=== PATIENT | male | born 1995 | race Caucasian/White ===

== ENCOUNTER 2023-11-17 09:44 | Emergency (ER) | payer OTHER, SELFPAY ==
--- NOTE | ~2023-11-17 | XR_ITS ---
EXAMINATION: XR CHEST CLINICAL INFORMATION: Chest pain COMPARISON: None available. TECHNIQUE: Frontal view of the chest was obtained. FINDINGS: Cardiac silhouette is normal in size. The lungs are well aerated. There is no lobar consolidation. No pleural effusion or pneumothorax. No acute osseous abnormality. XR/XR chest 1V IMPRESSION: No acute pulmonary pathology.
--- NOTE | 2023-11-17 09:48 | ECG_ITS ---
Test Reason : chest pain Blood Pressure : / mmHG Vent. Rate : 097 BPM Atrial Rate : 097 BPM P-R Int : 134 ms QRS Dur : 086 ms QT Int : 342 ms P-R-T Axes : 082 078 058 degrees QTc Int : 434 ms Normal sinus rhythm with sinus arrhythmia Normal ECG No previous ECGs available Referred By: Generic ED Physician Electronically Signed By:YOLI FUCHS
[2023-11-17 10:00] VITALS: BP 114/65; PULSE 98; RESP 18; TEMP 36.8; O2SAT 98; BMI 19.3
--- NOTE | 2023-11-17 10:18 | ED_ITS ---
HPI - Chest Pain General Chief Complaint: Chest Pain Stated Complaint: chest pain Time Seen by Provider: 11/17/23 10:15 Source: patient Mode of arrival: ambulatory Limitations: no limitations History of Present Illness HPI narrative: Patient is a 27-year-old male presents emergency department for evaluation of chest pain. He reports that he experiences intermittent left anterior chest pain that is described as a pinch and sharp in nature, typically lasts a few seconds to 1 minute before self-resolving. He admits that this typically occurs when he is smoking marijuana and he notices that he begins to feel anxious when the pain occurs sometimes is short of breath. Again the self resolved relatively quickly. He reports sometimes it happens at least once daily other times it may happen a few times throughout the week. He denies cigarette smoking. Denies personal history of DVT/PE/malignancy. Denies any known coagulation disorders. He admits to a history of colitis which has been controlled with sulfasalazine. He is currently without chest pain. He denies associated dizziness, lightheadedness, near syncope, nausea, vomiting, abdominal pain, numbness or tingling of his extremities. He has not sought evaluation with a primary care provider for this, he states he has an upcoming appointment with a new PCP after many years of not having one. When asked, he states that nothing was particularly different or changed today, he just wanted to ?finally have it checked out?. He does admit to being ?high strung?, and having ?a lot of anxiety?. He does not follow with a therapist, nor is he on any anxiolytics and has not been in the past, denies interest in this. Denies SI/HI. Denies additional recreational drug or alcohol usage. Related Data Allergies Allergy/AdvReac Type Severity Reaction Status Date / Time No Known Allergies Allergy Verified 11/17/23 10:02 Review of Systems 2 Review of Systems: Yes all other systems are reviewed and are negative PMFSH Past Medical History Attestation statement: The following information was validated with the patient. Source: old records reviewed Social History Social History Smoked in Last 30 Days: Yes Use of substances other than those prescribed or required for medical reasons: Yes Substance Use Type: Marijuana Substance Use Frequency: Weekly Advance Directives: No Advance Directives Information Provided: No Do you have a plan to hurt others: No Plan Physical Exam 2 Vital Signs: Vital Signs: Last Vital Signs Temp 98.4 F 11/17/23 10:35 Pulse 72 11/17/23 10:35 Resp 18 11/17/23 10:35 BP 132/80 11/17/23 10:35 Pulse Ox 98 11/17/23 10:35 O2 Del Method Room Air 11/17/23 10:35 BMI result Body Mass Index 19.3 Appearance: Alert.?Oriented to person, place and time. No acute distress.?Normal affect. Eyes: Pupils equal, round and reactive to light.? ENT: Pharynx normal.?? Neck: Normal inspection.? Neck supple.?? CVS: Heart sounds normal. Normal heart rate and rhythm.? Pulses normal.?? Respiratory: No respiratory distress.? Lung sounds clear to auscultation bilaterally?? Abdomen: Soft and non-tender. Normoactive bowel sounds. No pulsatile mass.?? Skin: Skin warm and dry.? Normal skin color.? Extremities: No lower extremity edema.? No calf ttp? Neuro: Moves all extremities spontaneously. Sensation intact bilaterally. CN II- XII intact. No focal neuro deficits. Ambulates with normal steady gait. Course Reevaluation(s) Reevaluation #1: CBC reveals a mild leukocytosis of 12.7 without left shift, may be viral versus inflammatory in nature, mild normocytic anemia that does not meet transfusion criteria, mild thrombocytosis of 442,000. Pulse has been less than 100, no hypoxia, no risk factors for PE. Chemistries are overall unremarkable. High sensitive troponin below detectable limits, EKG is nonischemic, do not suspect ACS, has atypical history for ACS in addition to no risk factors. Chest x-ray is without acute pathology. I feel he is stable for discharge home, outpatient follow-up his primary care provider. An advised to avoid exacerbating factors of the symptoms including smoking marijuana. Discussed worrisome signs and symptoms that would warrant re-evaluation in the emergency department. Medical Decision Making Medical Decision Making MDM Narrative: Patient is a 27-year-old male with past medical history of colitis who presents emergency department for evaluation of intermittent episodic chest pain as per HPI. Episodes very brief in nature and self resolve. On examination he appears overall well, nontoxic, afebrile, no respiratory distress. Does admit to a history of anxiety, has not had any acute change to these episodes of chest pain but wanted to have evaluation given it has been going on for nearly 2 years now. Wells negative, unlikely pulmonary embolism. Will obtain CBC to evaluate for leukocytosis/ anemia, CMP and lipase to evaluate for abnormal electrolytes /abnormal renal function/ abnormal hepatic/biliary function, EKG and troponin to evaluate for ischemia/ACS. Chest x-ray to evaluate for consolidation/ infiltrate/ mass/ pulmonary congestion. Differential Diagnosis Differential Diagnoses: The differential diagnosis associated with the presentation includes (See narrative above) Admission/Observation Consideration of admission/observation: Escalation of care including admission/observation considered Lab Data MDM Lab Attestation statement: I reviewed the patient's lab results. (See course narrative) 11/17/23 10:18 11/17/23 10:18 Labs: Lab Results 11/17/23 Range/Units 10:18 WBC 12.7 H (4.8-10.8) X10*3/uL RBC 4.51 L (4.60-5.80) X10*6/uL Hgb 13.4 L (14.0-18.0) g/dl Hct 41.1 L (42.0-52.0) % MCV 91.1 (80.0-98.0) fL MCH 29.7 (27.0-33.0) pg MCHC 32.6 (31.0-36.0) g/dl RDW 13.0 (11.0-16.0) % Plt Count 442 H (160-400) X10*3/uL MPV 8.9 L (9.4-12.4) fL Immature Gran % (Auto) 0.2 (0.0-0.4) % Neut % (Auto) 63.6 (45-73) % Lymph % (Auto) 15.5 L (20-40) % [place] % (Auto) 12.0 H (2-11) % Eos % (Auto) 7.5 H (0-4) % Baso % (Auto) 1.2 (0-2) % Lymph # (Auto) 2.0 (1.2-4.9) X10*3/uL [place] # (Auto) 1.5 H (0.1-1.2) X10*3/uL Eos # (Auto) 1.0 H (0.0-0.4) X10*3/uL Baso # (Auto) 0.2 (0.0-0.2) X10*3/uL Abs Immat Gran (auto) 0.03 (0.00-0.03) X10*3/uL Absolute Neuts (auto) 8.1 (2.0-8.3) x10*3/uL Absolute Nucleated RBC 0.000 (0.0-0.012) X10*3/uL Nucleated RBC % (auto) 0.0 (0.0-0.2) /100WBC Smear Tech's Comments VERIFIED Sodium 141 (135-145) mmol/L Potassium 3.9 (3.3-5.1) mmol/L Chloride 109 H (96-108) mmol/L Carbon Dioxide 21 L (22-29) mmol/L Anion Gap 15 (12-20) BUN 9 (9-16) mg/dL Creatinine 0.88 (0.5-1.4) mg/dL Estim Creat Clear Calc 101.6 Estimated GFR > 60 Random Glucose 94 (60-115) mg/dL Calcium 9.5 (8.4-10.2) mg/dL Troponin I High Sens < 2.7 (<3.5-35.0) ng/L Independent Interpretation I performed an independent interpretation of an: EKG and Plain X-Ray (No acute infiltrates consolidation or pneumothorax) Interpretation: Rate: 97 Rhythm:? Normal sinus rhythm Normal P waves.? Normal MACKENZIE.?? Normal QRS complex.?? ST T wave :??No ST elevation, no ST depression, no T-wave inversion qTC:434 prior studies:? No prior available for review The study has been interpreted contemporaneously by me. Radiology Impression Discussion of test interpretation with radiology: I have reviewed the radiologist's reading. Radiologist Impression: XR/XR chest 1V IMPRESSION: No acute pulmonary pathology. Prescription Management I considered prescription management with: Pain Medication Discharge Plan Discharge Clinical Impression: Chest pain Patient Disposition: Home, Self-Care Instructions: Noncardiac Chest Pain (ED) Additional Instructions: Your testing today was very reassuring including blood work, x-ray, and EKG. As discussed make sure that you follow-up with your primary care provider. You can take ibuprofen 200 mg, 3 tablets (600mg) every 6-8 hours as needed for pain, in addition to Tylenol 500 mg, 2 tablets (1,000mg) every 4-6 hours as needed for pain, but not to exceed 3 doses daily (3,000mg).? You may return back to emergency department any new or worsening symptoms or concerns Referrals: Rocky Yu MD [Primary Care Provider] - Print Language: Angolan
[2023-11-17 10:23] LABS: Basophils Absolute Auto 0.2 X10*3/uL (0.0-0.2); Basophils Percent Auto 1.2 % (0-2); Eosinophils Percent Auto 7.5 % (0-4); Hematocrit 41.1 % (42.0-52.0); Hemoglobin 13.4 g/dl (14.0-18.0); Imm Gran Abs Auto 0.03 X10*3/uL (0.00-0.03); Imm Gran Pct Auto 0.2 % (0.0-0.4); Lymphocytes Percent Auto 15.5 % (20-40); MANUAL DIFF FLAG SCAN; Mean Corpuscular HGB Conc 32.6 g/dl (31.0-36.0); Mean Corpuscular Hemoglobin 29.7 pg (27.0-33.0); Mean Corpuscular Volume 91.1 fL (80.0-98.0); Mean Platelet Volume 8.9 fL (9.4-12.4); Monocytes Absolute Auto 1.5 X10*3/uL (0.1-1.2); Neutrophils Absolute Auto 8.1 x10*3/uL (2.0-8.3); Neutrophils Percent Auto 63.6 % (45-73); Platelet Count 442 X10*3/uL (160-400); Red Blood Count 4.51 X10*6/uL (4.60-5.80); SCAN SMEAR FLAG 1; White Blood Count 12.7 X10*3/uL (4.8-10.8)
--- NOTE | 2023-11-17 10:27 | PC.NURSE ---
Pt comes from home for intermittent chest pain that started in 2021. Pt states it feels like a pinching sensation over the left side of his chest that sometimes radiates into his arm/armpit, he also says he feels short of breath when this happens. Pt states nothing makes it feel better, smoking marijuana can increase the pain. He says he was able to feel his heart when he places his hand over his chest and no longer can feel it. He states he feels his pulse is weak , radial pulses steady and equal bilaterally. Pt very anxious during assessment, pulling at clothes, constantly feeling pulse, little eye contact. Pt states he does not have diagnosed anxiety but does feel anxious at times. States he has had alot of life stressors recently, recent breakup and has been worrying about alot of things. A/ox4, lung sounds cta bilaterally, no increased WOB/SOB noted, S1 and S2 heard, no CP at this time, abdomen soft and non-tender, denies n/v/d/cox/dizziness. 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 Call bhatia within reach, all needs met, awaiting further orders at this time.
[2023-11-17 10:35] VITALS: BP 132/80; PULSE 72; RESP 18; TEMP 36.9; O2SAT 98
[2023-11-17 10:41] LABS: SLIDE REVIEW VERIFIED
[2023-11-17 10:49] LABS: Anion Gap 15 (12-20); Blood Urea Nitrogen 9 mg/dL (9-16); Calcium 9.5 mg/dL (8.4-10.2); Carbon Dioxide 21 mmol/L (22-29); Chloride 109 mmol/L (96-108); Creatinine Clr Calc Pharmacy 101.6; Estimated Glomerular Filt Rate > 60; Glucose Random 94 mg/dL (60-115); Potassium 3.9 mmol/L (3.3-5.1); Sodium 141 mmol/L (135-145)
[2023-11-17 11:06] LABS: Troponin-I High Sensitivity < 2.7 ng/L (<3.5-35.0)
[2023-11-17 12:07] VITALS: BP 121/76; PULSE 70; RESP 18; TEMP 36.9; O2SAT 98
== END 2023-11-17 12:08 | disposition home or self-care (01) ==
PROVIDERS: Emergency Provider Emergency Medicine; PCP Family Medicine
DX: R07.9 Chest pain, unspecified (principal); R06.02 Shortness of breath; F12.90 Cannabis use, unspecified, uncomplicated
CPT/HCPCS: 36415; 71045; 80048; 84484; 85025; 93005; 99284; 99285

== ENCOUNTER → 2023-11-17 09:48 | Outpatient (BNV) | payer OTHER, SELFPAY | PROVIDERS: Emergency Provider Emergency Medicine; PCP Family Medicine; Visit Provider Internal Medicine | DX: R07.9 Chest pain, unspecified (principal) | CPT/HCPCS: 93010 ==

== ENCOUNTER 2024-05-23 09:48 | Outpatient (AMB) | payer OTHER, SELFPAY ==
--- OUTSIDE RECORDS SUMMARY | 2024-05-23 10:24 | XMS_ITS | Data Portability ---
Author Organization [facility], [address] Address [address] [place] [address] Assessment No assessment recorded. Plan of Treatment Reminders Order Date Submit Date Provider Last Modified By Organization Details Last Modified Time Details Appointments None recorded. Lab None recorded. Referral crossbar switch adjuster referral - ingrown toenail right big toe. patient wants to get second opinion before making decision for wedge resection. need further evaluation and treatement. 2022 023 [email or web address] Juanito Loza, [address] [facility], [facility] [address], [place], [address], 17:25:07 Procedures None recorded. Surgeries None recorded. Imaging None recorded. Medication Orders cephalexin 500 mg capsule 2022 023 SAEID [id number], [address], [place], [id number], 3 17:17:19 Patient TargetsNo targets recorded. Patient Instructions Encounter Date Encounter Id Patient Instructions Last Modified By Organization Details Last Modified Time 01/04/2023 [id number] cellulitis: care instructions Not available 01/04/2023 17:17:07 skin abscess: care instructions Not available 01/04/2023 17:17:07 An ingrown toenail often occurs because a nail is not trimmed correctly or because shoes are too tight. An ingrown nail can cause an infection. If your toe is infected, your doctor may prescribe antibiotics. Most ingrown toenails can be treated at home. You should trim toenails straight across, so the ends of the nail grow over the skin and not into it. Good nail care can prevent ingrown toenails. How can you care for yourself at home? Trim the nails straight across. Leave the corners a little longer so they do not cut into the skin. To do this when you have an ingrown nail: Soak your foot in warm water for about 15 minutes to soften the nail. Wedge a small piece of wet cotton under the corner of the nail to cushion the nail and lift it slightly. This keeps it from cutting the skin. Repeat daily until the nail has grown out and can be trimmed. Do not use manicure scissors to dig under the ingrown nail. You might stab your toe, which could get infected. Do not trim your toenails too short. Check with your doctor before trimming your own toenails if you have been diagnosed with diabetes or peripheral arterial disease. These conditions increase the risk of an infection, because you may have decreased sensation in your toes and cut yourself without knowing it. Wear roomy, comfortable shoes. If your doctor prescribed antibiotics, take them as directed. Do not stop taking them just because you feel better. You need to take the full course of antibiotics. Not available 01/04/2023 17:17:05 Reason for Referral Pharmacist Apprentice Referral for Ingr owing nail of toe of right foot ingrown toenail right big toe. patient wants to get second opinion before making decision for wedge ingrown toenail right big toe. patient wants to get second opinion before making decision for wedge resection. need further evaluation and treatement. Referring Physician: Dimas Lackey, Urgent Care, Encounter Date: 01/04/2023 Problems Name Problem SNOMED Code Status Onset Date Resolution Date Notes Provider Name and Address Organization Details Recorded Time Ulcerative colitis 29245131 Active JUDY gipson, [place] - [facility] 3 16:48:40 Problem Notes None recorded. Procedures Surgical History Date Name Laterality Status Provider Name and Address Organization Details Recorded Time Wound Dressing completed Dimas Lackey NP [address] [place], [address], [place] - [facility] 01/04/2023 17:17:47 Imaging Results None recorded. Procedure Notes None recorded. Medical Equipment None Reported. Allergies No known drug allergies Medications Name Sig Start Date Stop Date Status Note LastModified by Organization Details LastModified Time cephalexin 500 mg capsule Take 1 capsule every 8 hours by oral route with meals for 10 days. 2022 active Not Available Not Available Not Avai lable balsalazide 750 mg capsule Take 3 capsules 3 times a day by oral route for 56 days. active Not Available Not Available No t Available Vitals Date Recorded Body height Provider Name an d Address Organization Details Last Updated DateTime 01/04/2023 170.18 cm JUDY DEPINTO PA - [facility] 0 01/04/2023 16:46:20 Date Recorded Body mass index (BMI) Body weight Provider Name and Address Organization Details Last Updated DateTime 01/04/2023 19.6 kg/m2 58216.05 g JUDY DEPINTO PA - [facility] 01/04/2023 16:46:28 Date Recorded Respiratory rate Provider Name a nd Address Organization Details Last Updated DateTime 01/04/2023 18 /min JUDY DEPINTO PA - [facility] 0 01/04/2023 16:46:30 Date Recorded Pain severity - 0-10 verbal numeric rating [Score] - Reported Provider Name and Address Organization Details Last Updated DateTime 01/04/2023 3 JUDY DEPINTO PA - [facility] 0 01/04/2023 16:46:46 Date Recorded Body temperature Provider Name a nd Address Organization Details Last Updated DateTime 01/04/2023 97.5 [degF] JUDY DEPINTO PA - [facility] 01/04/2023 16:50:24 Date Recorded Oxygen saturation Oxygen saturation in Arterial blood by Pulse oximetry Provider Name and Address Organization Details Last Updated DateTime 01/04/2023 99 % 99 % JUDY DEPINTO PA - [facility] 01/04/2023 16:50:35 Date Recorded Heart rate Provider Name an d Address Organization Details Last Updated DateTime 01/04/2023 80 /min JUDY DEPINTO PA - [facility] 0 01/04/2023 16:50:37 Date Recorded Systolic blood pressure Diastolic blood pressure Provider Name and Address Organization Details Last Updated DateTime 01/04/2023 140 mm[Hg] 84 mm[Hg] JUDY DEPINTO PA - [facility] 01/04/2023 16:50:49 Social History Question Answer Notes LastModified by Organizat ion Details LastModified Time Tobacco Smoking Status Never Smoker JUDY BRONSON [facility] g[facility]son [facility] 01/04/2023 16:49:38 What Is Your Level Of Alcohol Consumption? Occasional Information not available 01/04/2023 How Many Times Per Week Do You Consume Alcohol? 1-2 Times Per Week Information not available 01/04/2023 Which Illicit Or Recreational Drugs Have You Used? Marijuana Information not available 01/04/2023 Have You Had A Flu Shot This Season? No Information not available 01/04/2023 If No, Would You Like A Flu Shot Today? No Information not available 01/04/2023 Do You Use Any Illicit Or Recreational Drugs? Yes Information not available 01/04/2023 Have You Recently Traveled Abroad? No Information not available 01/04/2023 Sex: Unknown Functional Status None recorded. Mental Status None recorded. Family History Relationship Description Onset Age of this Age Resolved Age Notes LastModified by Organization Details LastModified Time Mother Malignant tumor of breast Not available 2022 16:48:54 Maternal Grandfather Diabetes mellitus Not available 2022 16:48:59 Maternal Grandmother Alzheimer's disease great grandm other Not available 01/04/2023 16:49:33 Medical History No medical history recorded. Past Encounters Encounter ID Performer Location Encounter Start Date Encounter Closed Date Diagnosis/Indication Diagnosis SNOMED-CT Code Diagnosis ICD10 Code Diagnosis Note [id number] [address] [place] [address] 03/08/2020 11:17:20 03/08/2020 13:33:05 [id number] [address] [place] [address] 10/28/2016 11:53:06 10/28/2016 12:34:45 [id number] [place] [address] [place] [address] 01/04/2023 16:33:06 01/04/2023 17:25:07 Ingrowing nail of toe of right foot [id number] L60.0 Health Concerns Section Related Observation LastModified by Organization Detrenae ls LastModified Time None Recorded Concern Status LastModified by Organization Details LastModified Time None Recorded Advance Directives Directive None Recorded Payers Encounter Date Sequence Insurance Name Policy Number Policy Saldivar Covered Member ID Saldivar Member ID Guarantor Name 10/28/2016 1 [facility] [id number] Navid Serafin [id number] Navid Serafin 03/08/2020 1 [facility] [facility] [id number] Navid Serafin [id number] Navdi Serafin 01/04/2023 1 [facility] [id number] [facility] Serafin [id number] Navid Betancourt Notes Date Note Type Note Provider Name and Address Organization Details Recorded Time 01/04/2023 text/html Skin Redness UCReported bypatient.Locatio n:right foot; right big toe ingrown toe nail with redness and swelling on /off. Quality:painful;e rythematous Severity:moderate ;worsening;consta nt Duration:10 days Onset:gradual onset Alleviating factors:nothing gives relief Aggravating factors:nothing makes it worse Symptoms:no fever; no nausea; no vomiting;swelling Dimas Lackey NP [address] [place], [address], [place] - [facility] 01/04/2023 17:18:08
--- NOTE | 2024-05-23 10:52 | A.OFFPC_ITS ---
Vital Signs 05/23/24 10:59 Height 5 ft 7 in Weight 146 lb 2 oz BMI 22.9 BP 103/66 Blood Pressure Location Lt brachial Position Sitting Respiration 14 Pulse 75 Pulse Source Pulse Oximeter Temp 99.5 F Temp Source Oral Pulse Oximetry (%) 96 Oxygen Delivery Method Room Air Intake Visit Reasons: DENTAL HYGIENIST Intake Note: establish care Allergies No Known Allergies Allergy (Verified 05/23/24 10:53) Tobacco use date assessed: 05/23/24 Dental Screening Dental Screen Date: 05/23/24 Did you have a dental visit in the last 12 months?: Yes Did you have a dental problem in the last 6 months where you did not have access to dental care?: No HPI DENTAL HYGIENIST HPI Details New Patient? ?? Prior PCP:? Dax 2021 Last office visit/CPE:? > 1 yr Acute issue(s):? ?? PMHx:? UC Dr Chahal. SurgHx:?None FHx:? Mom: Breast CA. mGF: DM, SocHx: No Cigs. EtOH: Fridays 6-7. MJ daily. No other drugs. [facility] Medical History (Updated 05/23/24 @ 11:43 by Rocky Yu MD) Shingles Anxiety Ulcerative colitis IBS (irritable bowel syndrome) Family History (Updated 05/23/24 @ 10:57 by Abbi Quinones CMA) Maternal Grandfather Diabetes Mother Breast cancer Social History Housing: Condominium Patient Tobacco Use Status: Never used Tobacco e-Cigarette/Vaping Use: Never Used Second Hand Smoke Exposure: No Substance Use Type: Marijuana service: No Current occupational status: employed Current occupation: sales order processor Current occupational exposures/hazards: Yes Cognitive needs: No Hearing needs: No Vision needs: Yes Questionnaire PHQ-9 Over the last 2 weeks, how often have you been bothered by any of the following problems? 1. Little interest or pleasure in doing things: not at all 2. Feeling down, depressed, or hopeless: several days 3. Trouble falling or staying asleep, or sleeping too much: not at all 4. Feeling tired or having little energy: nearly every day 5. Poor appetite or overeating: not at all 6. Feeling bad about yourself - or that you are a failure or have let yourself or your family down: several days 7. Trouble concentrating on things, such as reading the newspaper or watching television: not at all 8. Moving or speaking so slowly that other people could have noticed. Or the opposite - being so fidgety or restless that you have been moving around a lot more than usual: not at all 9. Thoughts that you would be better off or of hurting yourself in some way: several days Total score: 6 Depression Screening Interpretation: Positive Depression Screening Done: Yes 32471 - PHQ-9 Billing: Yes Source: Developed by Drs. Giuseppe Jeronimo, Garima Munguia, Karlos Sotelo and colleagues, with an educational zackery from [employer]. Thrive Questionnaire Date Thrive assessed: 05/23/24 I am a: Patient What is your living situation today?: I have a steady place to live Within the past 12 months, did the food you bought not last and you didn't have the money to get more?: Never true Within the past 12 months, did you worry whether your food would run out before you got money to buy more?: Never true Do you have trouble paying for medicines?: No Do you have trouble getting transportation to medical appointments?: No Do you have trouble paying your heating and electricity bill?: No Do you have trouble taking care of your child, family member or friend?: No Do you have trouble with day-to-day activities such as bathing, preparing meals, shopping, managing finances, etc.?: No Are you currently unemployed and looking for a job?: No Are you interested in more education?: Yes Please select the resources that you would like help with: None Currently or been in a relationship where the following occur: No concerns reported THRIVE Score: 0 AUDIT C Alcohol Use Questionnaire (AUDIT-C) 1. How often do you have a drink containing alcohol?: 2-4 times a month 2. How many drinks containing alcohol do you have on a typical day when you are drinking?: 5 or 6 3. How often do you have six or more drinks on one occasion?: Weekly Total Score: 7 Score Reviewed/Action Taken: Yes ESTUARDO-7 AMB Questionnaire ESTUARDO-7 Date ESTUARDO - 7 assessed: 05/23/24 Feeling nervous, anxious, or on edge: 1 = Several days Not being able to stop or control worryin = Not at all Worrying too much about different things: 1 = Several days Trouble relaxin = Not at all Being so restless that it is hard to sit still: 0 = Not at all Becoming easily annoyed or irritable: 1 = Several days Feeling afraid as if something awful might happen: 3 = Nearly every day Total ESTUARDO-7 score (0-4 normal; 5-9 mild; 10-14 moderate; 15-21 severe): 6 Source: Developed by Drs. Giuseppe Jeronimo, Garima Munguia, Karlos Sotelo and colleagues, with an educational zackery from [employer]. ESTUARDO-7 Assessment Billing ESTUARDO-7 Assessment Tool: ESTUARDO-7 Assessment 43238 Review of Systems Const Denies chills, Denies fatigue, Denies fever(s), Denies headache(s) and Denies weakness ENT Denies dizziness and Denies headache(s) Card Denies dyspnea Resp Denies cough, Denies dyspnea, Denies wheezing and Denies other (shortness of breath) Musc Denies numbness and Denies tingling Neuro Denies dizziness, Denies headache(s), Denies numbness, Denies tingling and Denies weakness Psych Reports anxiety and Reports depression Endo Denies fatigue Aller/Immun Denies wheezing Physical exam (Primary Care) Tobacco/Smoking Status: Tobacco use Status Tobacco use date assessed 05/23/24 05/23/24 10:56 Patient Tobacco Use Status Never used Tobacco 05/23/24 10:56 e-Cigarette/Vaping Use Never Used 05/23/24 10:56 PHQ-9: PHQ-9 Score PHQ-9: Total score 6 05/23/24 10:56 Depression Screening Interpretation: Positive Thrive Assessment: Date of Thrive Assessment Date Thrive assessed 05/16/24 05/23/24 10:56 Currently or been in a relationship where the following occur: No concerns reported Const General: well developed; No acute distress Nutritional Appearance: well nourished Orientation/consciousness: patient oriented x3 HENMT Head: Yes normocephalic and Yes atraumatic Eyes General: appearance normal, both eyes and all related structures Pupils: Equal, round and reactive pupils present EOM: EOMs intact bilaterally Resp Effort & Inspection: normal respiratory effort Auscultation: clear to auscultation bilaterally Cardio Rate: regular rate Rhythm: regular rhythm Heart sounds: S1 normal heart sound present, S2 normal heart sound present, no gallops, no murmurs and no rubs Neuro General: patient oriented x3 and gait normal Cranial nerves: Yes Equal, round and reactive pupils present Psych Affect: normal affect Coding Level of Care Code New Pt Level 4 (65463) Diagnoses Chest pain R07.9 Anxiety with depression F41.8 Ulcerative colitis K51.90 Laboratory exam ordered as part of routine general medical examination Z00.00 Additional Codes PHQ-9 - 11343 - PHQ-9 Billing: Yes ([id number]) ESTUARDO-7 Assessment Billing - ESTUARDO-7 Assessment Tool: ESTUARDO-7 Assessment 42776 ([id number]) Assessment & Plan Assessment & Plan (1) Chest pain: Code(s): R07.9 - Chest pain, unspecified Category: Medical Plan: Ongoing?recurrent?left-sided?chest?pain. Not?associated?with?exertion. He?had?a?workup?at?[facility]?in?October?which?ruled?out?ACS?at?that?time. Symptoms?rather?atypical. EKG?today?shows?normal?sinus?rhythm,?normal?axis,?no?hypertrophy?no?ST?T- wave?changes. This?does?not?appear?to?be?cardiac?in?origin He?had?a?chest?x- ray?at?that?time?which?was?negative.??He?does?not?have?any?inspiratory?chest?rich n.??No?shortness?a?breath. Lungs?are?clear?to?auscultation Pain?is?not?associated?with?movements?of?arm?shoulder?or?chest.??No?significant? reproducibility. Not?associated?with?eating?or?abdominal?pain. Will?check?labs?including?CBC?in?a?D-di king?though?I?think?chance?of?a?PE?is?minimal. Discussed?that?if?we?rule?out?everything?else,?the?likelihood?is?this?is?related ?to?anxiety.??See?below (2) Anxiety with depression: Code(s): F41.8 - Other specified anxiety disorders Category: Medical Plan: Patient?does?acknowledge?some?anxiety. Briefly?discussed?therapy?mentioned?medications. Will?readdress?after?lab?work?returns (3) Ulcerative colitis: Code(s): K51.90 - Ulcerative colitis, unspecified, without complications Category: Medical Plan: Patient?is?on?sulfasalazine?and?followed?by??[facility] Follow-up?with?GI?as?recommended (4) Laboratory exam ordered as part of routine general medical examination: Code(s): Z00.00 - Encounter for general adult medical examination without abnormal findings Category: Medical Plan: Check?labs Orders: Orders Comprehensive Centuria. Panel Fast Today Z00.00 - Encounter for general adult medical examination without abnormal findings Complete Blood Count Auto Diff Today Z00.00 - Encounter for general adult me dical examination without abnormal findings Lipid Panel Today Z00.00 - Encounter for general adult medical examination without abnormal findings Microalbumin, Random (w Creat) Today I10 - Essential (primary) hypertension TSH reflex Free T4 Today Z00.00 - Encounter for general adult medical examination without abnormal findings UA and rflx microscopic Today Z00.00 - Encounter for general adult medical examination without abnormal findings D Dimer High Sensitivity Today R07.9 - Chest pain, unspecified AMB EKG-In Office Today R07.89 - Other chest pain
[2024-05-23 10:59] VITALS: BP 103/66; PULSE 75; RESP 14; TEMP 37.5; O2SAT 96; BMI 22.9
== END 2024-05-23 11:45 | disposition home or self-care (01) ==
PROVIDERS: PCP Family Medicine; Visit Provider Family Medicine
DX: R07.9 Chest pain, unspecified (principal); F41.8 Other specified anxiety disorders; K51.90 Ulcerative colitis, unspecified, without complications; Z00.00 Encounter for general adult medical examination without abnormal findings

== ENCOUNTER → 2024-05-23 09:48 | Outpatient (BNVA) | payer OTHER, SELFPAY | PROVIDERS: PCP Family Medicine; Visit Provider Family Medicine | DX: R07.9 Chest pain, unspecified (principal); F41.8 Other specified anxiety disorders; K51.90 Ulcerative colitis, unspecified, without complications | CPT/HCPCS: 96127 ==

== ENCOUNTER 2024-05-26 08:12 | Outpatient (REF) | payer OTHER, SELFPAY ==
--- OUTSIDE RECORDS SUMMARY | 2024-05-26 08:15 | XMS_ITS | Data Portability ---
Author Organization [facility], [address] Address [address] [place] [address] Assessment No assessment recorded. Plan of Treatment Reminders Order Date Submit Date Provider Last Modified By Organization Details Last Modified Time Details Appointments None recorded. Lab None recorded. 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 patient wants to get second opinion before making decision for wedge resection. need further evaluation and treatement. 2022 023 [email or web address] Juanito Loza, [address] [facility], [facility] [address], [place], [address], 17:25:07 Procedures None recorded. Surgeries None recorded. Imaging None recorded. Medication Orders cephalexin 500 mg capsule 2022 023 SAEID [id number], [address] [place], [place], [id number], 17:17:19 Patient TargetsNo targets recorded. 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 Procedures Surgical History Date Name Laterality Status Provider Name and Address Organization Details Recorded Time Wound Dressing completed Dimas Lackey NP [address] [place], [address], [place] - [facility] 01/04/2023 17:17:47 Imaging [...] active Not Available Not Available Not Avai labdalton balsalazide 750 mg capsule Take 3 capsules 3 times a day by oral route for 56 days. active Not Available Not Available No t Available Vitals Date Recorded Body height Body mass index (BMI) Body weight Respiratory rate Pain severity - 0-10 verbal numeric rating [Score] - Reported Body temperature Oxygen saturation Oxygen saturation in Arterial blood by Pulse oximetry Heart rate Systolic blood pressure Diastolic blood pressure Provider Name and Address Organization Details Last Updated DateTime 170.18 cm 19.6 kg/m2 44695.0 5 g 18 /min 3 97.5 [degF] 99 % 99 % 80 /min 140 mm[Hg] 84 mm[Hg] JUDY BRONSON [place] - [facility] 16:50:49 Social History Question Answer Notes LastModified by Organizat ion Details LastModified Time Tobacco Smoking Status Never Smoker JUDY gipson [place] - [facility] 01/04/2023 16:49:38 What Is Your [...] SNOMED-CT Code Diagnosis ICD10 Code Diagnosis Note [id number] [address] [place] [address] 03/08/2020 11:17:20 03/08/2020 13:33:05 [id number] [address] [place] [address] 10/28/2016 11:53:06 10/28/2016 12:34:45 [id number] [place] [address] [place] [address] 01/04/2023 16:33:06 01/04/2023 17:25:07 Ingrowing nail of toe of right foot [id number] L60.0 Health Concerns Section Related Observation LastModified by Organization Detai ls LastModified Time None Recorded Concern Status LastModified by Organization Details LastModified Time None Recorded Advance Directives Directive None Recorded Payers Encounter Date Sequence Insurance Name Policy Number Policy Saldivar Covered Member ID Saldivar Member ID Guarantor Name 10/28/2016 1 [facility] [id number] Navid Betancourt [id number] Navid Betancourt 03/08/2020 1 [facility] [id number] Navid Betancourt [id number] Navid Betancourt 01/04/[address] [place] [address] [id number] Daylin Betancourt [id number] Navid Betancourt Notes Date Note Type Note Provider Name and Address Organization Details Recorded Time 01/04/2023 text/html Skin Redness UCReported bypatient.Locatio n:right foot; right big toe ingrown toe nail with redness and swelling on /off. Quality:painful;e rythematous Severity:moderate ;worsening;consta nt Duration:10 days Onset:gradual onset Alleviating factors:nothing gives relief Aggravating factors:nothing makes it worse Symptoms:no fever; no nausea; no vomiting;swelling Dimas Lackey NP [address] [place], [address], [place] - [facility] 01/04/2023 17:18:08
[2024-05-26 11:30] LABS: MANUAL DIFF FLAG NO
[2024-05-26 11:38] LABS: Basophils Absolute Auto 0.1 X10*3/uL (0.0-0.2); Basophils Percent Auto 0.9 % (0-2); Eosinophils Absolute Auto 0.3 X10*3/uL (0.0-0.4); Eosinophils Percent Auto 3.5 % (0-4); Hematocrit 43.7 % (42.0-52.0); Hemoglobin 14.5 g/dl (14.0-18.0); Imm Gran Abs Auto 0.04 X10*3/uL (0.00-0.03); Imm Gran Pct Auto 0.5 % (0.0-0.4); Lymphocytes Absolute Auto 1.7 X10*3/uL (1.2-4.9); Lymphocytes Percent Auto 20.1 % (20-40); Mean Corpuscular HGB Conc 33.2 g/dl (31.0-36.0); Mean Corpuscular Hemoglobin 31.7 pg (27.0-33.0); Mean Corpuscular Volume 95.4 fL (80.0-98.0); Mean Platelet Volume 10.3 fL (9.4-12.4); Monocytes Absolute Auto 0.8 X10*3/uL (0.1-1.2); Monocytes Percent Auto 9.6 % (2-11); Neutrophils Absolute Auto 5.6 x10*3/uL (2.0-8.3); Neutrophils Percent Auto 65.4 % (45-73); Platelet Count 357 X10*3/uL (160-400); Red Blood Count 4.58 X10*6/uL (4.60-5.80); Red Cell Distribution Width 12.1 % (11.0-16.0); White Blood Count 8.5 X10*3/uL (4.8-10.8)
[2024-05-26 11:56] LABS: D Dimer High Sensitivity < 150 NG/ML
[2024-05-26 12:09] LABS: Appearance Urine Clear; Color Urine Dark Yellow; Glucose Urine UA Negative (Negative); Leukocyte Esterase Urine Negative (Negative); Nitrite Urine Negative (Negative); Urine Blood Negative (Negative); Urine Ketones Negative (Negative); Urine Protein Negative (Neg-Trace)
[2024-05-26 12:21] LABS: Alanine Aminotransferase 22 U/L (0-40); Albumin Level 4.6 g/dL (3.5-5.0); Alkaline Phosphatase 69 U/L (39-117); Anion Gap 10 (12-20); Aspartate Amino Transferase 23 U/L (5-37); Bilirubin Total 0.2 mg/dL (0.0-1.0); Blood Urea Nitrogen 11 mg/dL (9-16); Carbon Dioxide 25 mmol/L (22-29); Chloride 109 mmol/L (96-108); Cholesterol 109 mg/dL (<200); Estimated Glomerular Filt Rate > 60; Glucose Fasting 87 mg/dL (60-99); HDL Cholesterol 47 mg/dL (>40); LDL Cholesterol Calculated 49 mg/dL (<100); Potassium 3.6 mmol/L (3.3-5.1); Sodium 140 mmol/L (135-145); Total Protein 7.5 g/dL (6.5-8.0); Triglycerides 68 mg/dL (<150)
[2024-05-26 12:39] LABS: TSH reflex Free T4 0.58 uIU/mL (0.32-4.0)
[2024-05-26 12:50] LABS: Creatinine Urine 67.61 mg/dL; Microalbumin Urine < 5.0 mg/L
== END 2024-05-26 08:13 | disposition home or self-care (01) ==
LOC: HO.WFDLDS 08:12
PROVIDERS: Visit Provider Family Medicine
DX: Z00.00 Encounter for general adult medical examination without abnormal findings (principal); I10 Essential (primary) hypertension; R07.9 Chest pain, unspecified
CPT/HCPCS: 36415; 80053; 80061; 81003; 82043; 82570; 84443; 85025; 85379